=== PATIENT | male | born 1985 | race Two or more races ===

== ENCOUNTER → 2017-01-17 | Emergency (ER) | payer SELFPAY | END | disposition left against medical advice (07) | LOC: ER 20:57 | DX: H92.02 Otalgia, left ear (principal); R07.0 Pain in throat; Z53.21 Procedure and treatment not carried out due to patient leaving prior to being seen by health care provider ==

== ENCOUNTER 2018-09-29 11:37 | Emergency (ER) | payer MEDICAID ==
[~2018-09-29] VITALS: Ht 182.9 cm; Wt 149.7 kg
[2018-09-29 12:20] VITALS: BP 157/76
[2018-09-29] MEDS ORDERED: KETOROLAC TROMETH 60MG/2ML VIAL IM ONE (13:00)
== END 2018-09-29 13:23 | disposition home or self-care (01) ==
LOC: ER 11:37
DX: S83.92XA Sprain of unspecified site of left knee, initial encounter (principal); X50.1XXA Overexertion from prolonged static or awkward postures, initial encounter; Y93.89 Activity, other specified; Y92.89 Other specified places as the place of occurrence of the external cause; Y99.8 Other external cause status
CPT/HCPCS: 73562; 96372; 99283; J1885